=== PATIENT | male | born 1990 | race Caucasian/White ===

== ENCOUNTER → 2021-03-01 15:35 | Outpatient (BNVA) | payer MEDICAID, SELFPAY | PROVIDERS: Family Provider Nurse Practitioner Family; Visit Provider Registered Nurse | DX: F84.0 Autistic disorder (principal); F41.8 Other specified anxiety disorders | CPT/HCPCS: 36415; 80061; 82306; 83036; 84443 ==

== ENCOUNTER → 2022-02-07 15:25 | Outpatient (BNVA) | payer MEDICAID, SELFPAY | PROVIDERS: Family Provider Nurse Practitioner Family; Visit Provider Registered Nurse | DX: Z79.899 Other long term (current) drug therapy (principal) | CPT/HCPCS: 80053; 80061; 82306; 83036; 85025 ==

== ENCOUNTER → 2023-02-15 15:56 | Outpatient (BNVA) | payer MEDICAID, SELFPAY | PROVIDERS: Family Provider Nurse Practitioner Family; PCP Nurse Practitioner; Visit Provider Registered Nurse | DX: F41.8 Other specified anxiety disorders (principal) | CPT/HCPCS: 80053; 80061; 83036; 85025 ==